=== PATIENT | male | born 1980 | race Caucasian/White ===

== ENCOUNTER 2021-07-02 18:59 | Emergency (ER) | payer OTHER ==
[2021-07-02 19:58] LABS: HEMOGLOBIN 17.5 gm/dl (14.0-17.5); RED BLOOD COUNT 5.39 M/UL (4.20-5.50); WHITE BLOOD COUNT 8.3 K/UL (4.5-11.0)
[2021-07-02 20:28] LABS: BUN/CREATININE RATIO 12 (0-10)
== END 2021-07-02 21:00 | disposition home or self-care (01) ==
LOC: ER1 18:59
PROVIDERS: Emergency Medicine; Family Medicine
DX: Z04.3 Encounter for examination and observation following other accident (principal)
CPT/HCPCS: 70450; 71260; 72125; 72128; 72131; 80053; 80307; 81001; 83605; 85025; 85610; 85730; 86850; 86900; 86901; 96374; 99284; G0480; J2405; Q9967

== ENCOUNTER 2021-07-02 21:31 | Emergency (ER) | payer OTHER ==
[2021-07-03 06:21] LABS: HEMOGLOBIN 15.6 gm/dl (14.0-17.5); RED BLOOD COUNT 4.93 M/UL (4.20-5.50); WHITE BLOOD COUNT 6.9 K/UL (4.5-11.0)
[2021-07-03 07:28] LABS: BUN/CREATININE RATIO 11 (0-10)
== END 2021-07-03 08:37 | disposition home or self-care (01) ==
LOC: ER1 21:31
PROVIDERS: Family Medicine
DX: F99 Mental disorder, not otherwise specified (principal); S00.81XA Abrasion of other part of head, initial encounter; Z91.14 Patient's other noncompliance with medication regimen; Z20.822 Contact with and (suspected) exposure to COVID-19; V89.2XXA Person injured in unspecified motor-vehicle accident, traffic, initial encounter; Y92.410 Unspecified street and highway as the place of occurrence of the external cause
CPT/HCPCS: 80053; 85025; 96372; 99283; G0480; J2060; U0002